=== PATIENT | male | born 1965 | race African-American/Black ===

== ENCOUNTER 2018-07-26 07:09 | Inpatient (IN) ==
[2018-07-26 07:53] LABS: Basophils % 0.9 % (0.0-0.8); Eosinophils # 0.2 10*3/uL (0.0-0.87); Eosinophils % 4.6 % (0.00-10.9); Hematocrit 41.4 VOL% (42.0-52.0); Hemoglobin 13.9 GM/DL (14.0-18.0); Immature Granulocytes % 0.6 %; Immature Granulocytes Absolute 0.02 #; Lymphocytes % 28.9 % (21.2-54.2); Mean Corpuscular HGB Conc 33.6 GM/DL (32-36); Mean Corpuscular Hemoglobin 33 PG (27-34); Mean Corpuscular Volume 97.2 FL (87-102); Mean Platelet Volume 9.4 FL (9.6-12.0); Monocytes # 0.5 10*3/uL (0.11-0.8); Monocytes % 15.6 % (1.7-12.7); Neutrophils # 1.7 10*3/uL (1.4-7.4); Neutrophils % 49.4 % (38.7-73.9); Platelet Count 190 T/CUMM (130-400); Red Blood Count 4.26 MC/CUMM (3.8-5.5); Red Cell Distribution Width 11.8 % (9.3-17.3); White Blood Count 3.5 T/CUMM (4-12)
[2018-07-26 08:04] LABS: INR 0.9; PT Patient Result 10.2 SECS; Partial Thromboplastin Time 23.8 SECS (0-40)
[2018-07-26 08:18] LABS: Alanine Aminotransferase 22 U/L (16-61); Albumin 3.1 G/DL (3.4-5.0); Alkaline Phosphatase 84 U/L (45-117); Aspartate Amino Transferase 17 U/L (0-37); Blood Urea Nitrogen 16 MG/DL (7-18); Calcium 8.4 MG/DL (8.5-10.1); Glucose 243 MG/DL (74-106); Osmolality,Calculated 289.3 MOS/KG (273-304); Potassium 3.9 MMOL/L (3.5-5.1); Sodium 141 MMOL/L (136-145); Total Protein 6.3 G/DL (6.4-8.3); Troponin I < 0.015 NG/ML (0.00-0.045)
[2018-07-26 08:21] LABS: Band Neutrophils 3 % (0-10); Eosinophils 2 % (0-10); Lymphocytes 28 % (20-55); Platelet Estimate Normal; Segmented Neutrophils 52 % (50-85); Total Cells Counted 100
[2018-07-26 08:22] LABS: Macrocytosis Slight
[2018-07-26] MEDS ORDERED: GLUCAGON 1 MG VIAL IM PRN ×2 (10:10)
[2018-07-26] MEDS ORDERED: ACETAMINOPHEN 325 MG TABLET PO PRN (10:10)
[2018-07-26] MEDS ORDERED: ONDANSETRON 4 MG/2 ML VIAL IV PRN (10:10)
[2018-07-26] MEDS ORDERED: DEXTROSE 50% 25 GM/50 ML VIAL IV PRN ×2 (10:10)
[2018-07-26] MEDS ORDERED: DOCUSATE SODIUM 100 MG CAPSULE PO PRN (10:10)
[2018-07-26] MEDS ORDERED: ZALEPLON 5 MG CAPSULE PO PRN (10:10)
[2018-07-26 11:32] LABS: Apearance,Urine CLEAR (Clear); Bilirubin,Urine Negative (Negative); Blood, Urine Small mg/dL (Negative); Glucose,Urine (UA) >=500 mg/dL (Negative); Hyaline Casts,Urine 1 /LPF (0-3); Ketones,Urine Negative (Negative); Mucus,Urine Occasional /LPF (Occasional); Nitrite,Urine Negative (Negative); Protein,Urine 30 MG/DL; RBC,Urine 5 /HPF (0-4); Squamous Epithelial Cell,Urine Occasional /HPF (0-10); Urine Color Yellow (Yellow); Urine Specific Gravity 1.011 (1.001-1.035); WBC,Urine <1 /HPF (0-6)
[2018-07-26 12:04] LABS: Barbiturates Screen,Urine Negative (Negative); Benzodiazepines Screen,Urine Negative (Negative); Cannabinoid Screen,Urine Positive (Negative); Opiate Screen,Urine Negative (Negative); Phencyclidine Screen,Urine Negative (Negative)
[2018-07-26 12:23] LABS: Troponin I < 0.015 NG/ML (0.00-0.045)
[2018-07-26] MEDS: SODIUM CHLORIDE 0.45% 1,000 ML IV SCH (13:03)
[2018-07-26] MEDS: ENOXAPARIN 40 MG/0.4 ML SYRINGE SUBCUT SCH (13:03)
[2018-07-26] MEDS: INSULIN REGULAR 100 UNIT/ML SUBCUT SCH ×3 (13:26→21:47)
[2018-07-26 13:42] LABS: Folate 6.5 NG/ML (5.4-24.0)
[2018-07-26] MEDS ORDERED: INFLUENZA VIRUS VACCINE 0.5 ML SYRINGE IM ONE (16:00)
[2018-07-26 18:55] LABS: Troponin I < 0.015 NG/ML (0.00-0.045)
[2018-07-26] MEDS: CARVEDILOL 3.125 MG TABLET PO SCH (21:47)
[2018-07-27] MEDS: SODIUM CHLORIDE 0.45% 1,000 ML IV SCH ×4 (02:21→22:29)
[2018-07-27 05:20] LABS: Calcium 8.4 MG/DL (8.5-10.1); Osmolality,Calculated 287.1 MOS/KG (273-304); Potassium 3.7 MMOL/L (3.5-5.1); Risk Ratio 2.81; VLDL CHOLESTEROL 18.6 MG/DL
[2018-07-27 06:23] LABS: Basophils % 0.8 % (0.0-0.8); Eosinophils # 0.2 10*3/uL (0.0-0.87); Eosinophils % 5.5 % (0.00-10.9); Hematocrit 38.9 VOL% (42.0-52.0); Immature Granulocytes % 0.6 %; Immature Granulocytes Absolute 0.02 #; Lymphocytes # 1.4 10*3/uL (1.4-4.0); Lymphocytes % 38.3 % (21.2-54.2); Mean Corpuscular HGB Conc 33.4 GM/DL (32-36); Mean Corpuscular Hemoglobin 33 PG (27-34); Mean Corpuscular Volume 98.5 FL (87-102); Monocytes # 0.6 10*3/uL (0.11-0.8); Monocytes % 16.8 % (1.7-12.7); Neutrophils # 1.4 10*3/uL (1.4-7.4); Platelet Count 177 T/CUMM (130-400); Red Blood Count 3.95 MC/CUMM (3.8-5.5); Red Cell Distribution Width 11.6 % (9.3-17.3); White Blood Count 3.6 T/CUMM (4-12)
[2018-07-27 06:49] LABS: Band Neutrophils 1 % (0-10); Eosinophils 8 % (0-10); Hypochromasia 1+; Lymphocytes 37 % (20-55); Ovalocytes Slight; Platelet Estimate Adequate; Segmented Neutrophils 38 % (50-85); Total Cells Counted 100
[2018-07-27] MEDS: INSULIN REGULAR 100 UNIT/ML SUBCUT SCH ×4 (08:44→22:27)
[2018-07-27] MEDS: ENOXAPARIN 40 MG/0.4 ML SYRINGE SUBCUT SCH ×2 (09:23→09:35)
[2018-07-27] MEDS: CARVEDILOL 3.125 MG TABLET PO SCH ×2 (09:23→20:53)
[2018-07-27] MEDS: ASPIRIN EC 325 MG TABLET PO SCH (16:36)
[2018-07-27] MEDS: FOLIC ACID 1 MG TABLET PO SCH (16:36)
[2018-07-27] MEDS: CYANOCOBALAMIN 1000 MCG/1 ML VIAL SUBCUT SCH (16:38)
[2018-07-27] MEDS ORDERED: ATORVASTATIN 40 MG TABLET PO SCH (21:00)
[2018-07-28] MEDS: INSULIN REGULAR 100 UNIT/ML SUBCUT SCH ×3 (09:01→17:44)
[2018-07-28] MEDS: FOLIC ACID 1 MG TABLET PO SCH (09:02)
[2018-07-28] MEDS: CYANOCOBALAMIN 1000 MCG/1 ML VIAL SUBCUT SCH (09:02)
[2018-07-28] MEDS: ASPIRIN EC 325 MG TABLET PO SCH (09:02)
[2018-07-28] MEDS: CARVEDILOL 3.125 MG TABLET PO SCH (09:02)
[2018-07-28] MEDS: ENOXAPARIN 40 MG/0.4 ML SYRINGE SUBCUT SCH (09:56)
[2018-07-28] MEDS ORDERED: CARVEDILOL 3.125 MG TABLET PO SCH (10:21)
[2018-07-28] MEDS: SODIUM CHLORIDE 0.45% 1,000 ML IV SCH (10:33)
[2018-07-28 11:45] VITALS: BP 175/76
[2018-07-29] MEDS ORDERED: CYANOCOBALAMIN 500 MCG TABLET PO SCH (09:00)
== END 2018-07-28 17:05 | disposition home or self-care (01) | DRG 896 ==
LOC: N.ED 07:09 → SUATTDRO 10:11 → N.EDINP 10:11 → N.4E 15:25
PROVIDERS: ADMIT Internal Medicine Nephrology; ATTEND Hospitalist